=== PATIENT | male | born 1950 | race Hispanic/Latino ===

== ENCOUNTER 2019-07-17 10:47 | Emergency (ER) | payer OTHER ==
[2019-07-17] MEDS ORDERED: ALBUMIN (HUMAN) 25% 200 ML IV ONE (10:58)
[2019-07-17 11:13] LABS: CREATININE 1.9 mg/dL (0.5-1.5); POTASSIUM 4.1 mmol/L (3.5-5.1)
[2019-07-17 11:17] LABS: BASOPHILS % (AUTO) 0.7 % (0.0-5.0); EOSINOPHILS % (AUTO) 2.5 % (0.0-8.0); HEMATOCRIT 31.4 % (42-54); LYMPHOCYTES % (AUTO) 12.5 % (21.0-51.0); MEAN CORPUSCULAR HEMOGLOBIN 29.9 pg (27.0-33.0); MEAN CORPUSCULAR HGB CONC 34.4 g/dL (32.0-36.0); MONOCYTES % (AUTO) 9.2 % (3.0-13.0); NEUTROPHILS % (AUTO) 74.7 % (40.0-77.0); PLATELET COUNT (AUTO) 175 K/uL (130-400); RED BLOOD CELL COUNT(AUTO) 3.61 MIL/uL (4.50-6.20); RED CELL DISTRIBUTION WIDTH 24.9 % (11.0-15.5); WHITE BLOOD COUNT (AUTO) 6.9 K/uL (4.8-10.8)
[2019-07-17 11:18] LABS: ALBUMIN 3.1 g/dL (3.5-5.0); BILIRUBIN,TOTAL 1.5 mg/dL (0.2-1.0); TOTAL PROTEIN, SERUM 7.5 g/dL (6.0-8.3)
[2019-07-17 11:52] LABS: INR 1.11 (0.85-1.15); PARTIAL THROMBOPLASTIN TIME 28.8 SEC (26.3-35.5); PROTHROMBIN TIME 11.9 SEC (9.6-11.6)
[2019-07-17 15:49] LABS: APPEARANCE BODY FLUID SLIGHTLY CLOUDY (CLEAR); COLOR,BODY FLUID LT YELLOW (LT YELLOW); SPECIMENTYPE,BODY FLUID ASCITES; TOTAL VOLUME,BODY FLUID 9100 mL
[2019-07-17 15:50] LABS: BODY FLUID WBC 765 /cu. mm.
[2019-07-17 15:51] LABS: BODY FLUID RBC 275 /cu. mm.
[2019-07-17 16:50] LABS: BF LYMPHOCYTE 21 %; BF MESOTHELIAL 1 %; BF MONOCYTE 7 %; BF OTHER CELLS 3
== END 2019-07-17 13:02 | disposition home or self-care (01) ==
LOC: EDH 10:47
DX: R18.8 Other ascites (principal); K74.60 Unspecified cirrhosis of liver
CPT/HCPCS: 36415; 49083; 80053; 85025; 85610; 85730; 87071; 87205; 89051; 96365; 99285; A4215; P9046

== ENCOUNTER 2019-07-31 10:37 | Inpatient (IN) | payer OTHER, MEDICARE ==
[~2019-07-31] VITALS: Ht 177.8 cm; Wt 61.4 kg
[2019-07-31 11:24] LABS: ALBUMIN 3.4 g/dL (3.5-5.0); BILIRUBIN,TOTAL 1.1 mg/dL (0.2-1.0); CREATININE 2.2 mg/dL (0.5-1.5); POTASSIUM 5.1 mmol/L (3.5-5.1); TOTAL PROTEIN, SERUM 7.5 g/dL (6.0-8.3)
[2019-07-31 11:27] LABS: BASOPHILS % (AUTO) 0.7 % (0.0-5.0); HEMATOCRIT 31.2 % (42-54); LYMPHOCYTES % (AUTO) 10.1 % (21.0-51.0); MEAN CORPUSCULAR HEMOGLOBIN 30.2 pg (27.0-33.0); MEAN CORPUSCULAR HGB CONC 34.6 g/dL (32.0-36.0); MEAN CORPUSCULAR VOLUME 87.2 fL (79-99); NEUTROPHILS % (AUTO) 76.5 % (40.0-77.0); NUCLEATED RED BLOOD CELLS 0.3 % (0.0-0.19); PLATELET COUNT (AUTO) 156 K/uL (130-400); RED BLOOD CELL COUNT(AUTO) 3.58 MIL/uL (4.50-6.20); RED CELL DISTRIBUTION WIDTH 23.9 % (11.0-15.5); WHITE BLOOD COUNT (AUTO) 5.9 K/uL (4.8-10.8)
[2019-07-31 11:29] LABS: INR 1.17 (0.85-1.15); PARTIAL THROMBOPLASTIN TIME 30.9 SEC (26.3-35.5); PROTHROMBIN TIME 12.6 SEC (9.6-11.6)
[2019-07-31] MEDS ORDERED: ALBUMIN (HUMAN) 25% 200 ML IV ONE (13:02)
--- NOTE | 2019-07-31 14:00 | NUR ---
U/S GD PARACENTESIS PROCEDURE PERFORMED BY DR Avis MONSALVE. PUNCTURE SITE RLQ AND PATIENT TOLERATED PROCEDURE WELL. TOTAL REMOVED 9.7 LITERS OF CLOUDY YELLOW FLUID. END OF PROCEDURE AT 1345. CATHETER REMOVED AND DRESSING APPLIED. NO BLEEDING NOTED. REPORT GIVEN TO CED VELASCO AND PATIENT TRANSPORTED TO ED 10 VIA STRETCHER AT 1400. AAO X3 WITH NO C/O PAIN. SPECIMEN SENT TO LAB.
[2019-07-31 15:25] VITALS: BP 99/62
[2019-07-31] MEDS ORDERED: ONDANSETRON HCL 4 MG/2 ML VIAL IVP PRN (15:30)
[2019-07-31 15:38] LABS: APPEARANCE BODY FLUID CLEAR (CLEAR); COLOR,BODY FLUID LT YELLOW (LT YELLOW); SPECIMENTYPE,BODY FLUID ASCITES; TOTAL VOLUME,BODY FLUID 9700 mL
[2019-07-31 15:39] LABS: BODY FLUID WBC 167 /cu. mm.
[2019-07-31 15:42] LABS: BODY FLUID RBC 292 /cu. mm.
[2019-07-31 15:47] LABS: BF LYMPHOCYTE 39 %; BF MONOCYTE 7 %
[2019-07-31 20:00] VITALS: BP 98/56
[2019-07-31] MEDS ORDERED: PANT40TA PO (20:33)
[2019-07-31] MEDS ORDERED: SPIR100T5 PO (20:33)
[2019-07-31] MEDS ORDERED: LACT10SO32 PO (20:33)
[2019-07-31] MEDS ORDERED: URSO500T10 PO (20:33)
[2019-07-31] MEDS ORDERED: ONDA8TAB12 PO (20:33)
[2019-07-31] MEDS ORDERED: FURO40TA5 PO (20:33)
[2019-07-31] MEDS ORDERED: RIFA550T PO (20:33)
[2019-07-31] MEDS ORDERED: LINA290C PO (20:33)
[2019-08-01 00:04] VITALS: BP 95/58
[2019-08-01 01:35] LABS: CREATININE,URINE RANDOM 78 mg/dL (30-135); SODIUM,URINE RANDOM < 15 mmol/l (40-220)
[2019-08-01 04:08] VITALS: BP 90/50
[2019-08-01 05:55] LABS: BASOPHILS % (AUTO) 0.8 % (0.0-5.0); EOSINOPHILS % (AUTO) 5.9 % (0.0-8.0); HEMATOCRIT 30.6 % (42-54); LYMPHOCYTES % (AUTO) 15.5 % (21.0-51.0); MEAN CORPUSCULAR HEMOGLOBIN 30.3 pg (27.0-33.0); MEAN CORPUSCULAR HGB CONC 34.3 g/dL (32.0-36.0); MEAN CORPUSCULAR VOLUME 88.2 fL (79-99); MONOCYTES % (AUTO) 10.7 % (3.0-13.0); NEUTROPHILS % (AUTO) 66.3 % (40.0-77.0); PLATELET COUNT (AUTO) 148 K/uL (130-400); RED BLOOD CELL COUNT(AUTO) 3.47 MIL/uL (4.50-6.20); RED CELL DISTRIBUTION WIDTH 23.9 % (11.0-15.5); WHITE BLOOD COUNT (AUTO) 5.2 K/uL (4.8-10.8)
[2019-08-01 06:33] LABS: ALBUMIN 3.8 g/dL (3.5-5.0); BILIRUBIN,DIRECT 0.5 mg/dL (0.0-0.3); BILIRUBIN,TOTAL 1.2 mg/dL (0.2-1.0); CREATININE 1.7 mg/dL (0.5-1.5); POTASSIUM 4.7 mmol/L (3.5-5.1); TOTAL PROTEIN, SERUM 7.3 g/dL (6.0-8.3)
[2019-08-01 07:30] VITALS: BP 96/57
--- NOTE | 2019-08-01 08:00 | NUR ---
AM SHIFT ASSESSMENT.
[2019-08-01] MEDS: FAMOTIDINE/PF 20 MG/2 ML VIAL IV SCH (08:37)
[2019-08-01] MEDS ORDERED: ALBUMIN (HUMAN) 25% 100 ML IV SCH (09:15)
[2019-08-01 11:00] VITALS: BP 96/62
[2019-08-01] MEDS: URSODIOL 300 MG CAPSULE PO SCH (12:11)
[2019-08-01] MEDS: RIFAXIMIN 550 MG TABLET PO SCH (12:11)
--- NOTE | 2019-08-01 12:46 | NUR ---
PLACED ON 1500 ML FLUID RESTRICTIONS
[2019-08-01] MEDS: MIDODRINE HCL 5 MG TABLET PO SCH ×2 (13:25→19:55)
[2019-08-01] MEDS: LACTULOSE 20 GM/30 ML UDCUP PO SCH ×2 (13:26→19:55)
[2019-08-01] MEDS: ALBUMIN (HUMAN) 25% 100 ML IV NR ×2 (14:00→21:04)
[2019-08-01] MEDS: PHARMACY COMMUNICATION MISC SCH ×3 (14:15→22:15)
[2019-08-01 15:03] LABS: APPEARANCE,URINE Clear (CLEAR); BILIRUBIN,URINE Negative (NEGATIVE); COLOR,URINE Yellow (YELLOW); GLUCOSE, URINE (UA) Negative (NEGATIVE); KETONES,URINE Negative (NEGATIVE); LEUKOCYTE ESTERASE ,URINE Negative (NEGATIVE); NITRATE,URINE Negative (NEGATIVE); OCCULT BLOOD,URINE Negative (NEGATIVE); PH,URINE 5.5 (5.0-8.0); PROTEIN,URINE Negative (NEGATIVE)
[2019-08-01 15:32] LABS: AMPHET/METH SCREEN,URINE NEGATIVE (NEGATIVE); CANNABINOID SCREEN,URINE NEGATIVE (NEGATIVE); COCAINE SCREEN,URINE NEGATIVE (NEGATIVE); OPIATE SCREEN,URINE NEGATIVE (NEGATIVE); PHENCYCLIDINE SCREEN,URINE NEGATIVE (NEGATIVE)
[2019-08-01 15:54] LABS: BARBITURATE SCREEN, URINE NEGATIVE (NEGATIVE); BENZODIAZEPINES SCREEN,URINE NEGATIVE (NEGATIVE)
[2019-08-01 16:00] VITALS: BP 98/58
[2019-08-01 20:16] VITALS: BP 90/51
[2019-08-02] VITALS: BP 102/59
[2019-08-02] MEDS: PHARMACY COMMUNICATION MISC SCH ×3 (02:15→16:52)
[2019-08-02 04:00] VITALS: BP 97/58
[2019-08-02] MEDS: ALBUMIN (HUMAN) 25% 100 ML IV NR ×3 (04:52→14:00)
[2019-08-02 05:11] LABS: HEMATOCRIT 28.7 % (42-54); MEAN CORPUSCULAR HEMOGLOBIN 30.2 pg (27.0-33.0); MEAN CORPUSCULAR HGB CONC 34.1 g/dL (32.0-36.0); MEAN CORPUSCULAR VOLUME 88.6 fL (79-99); PLATELET COUNT (AUTO) 142 K/uL (130-400); RED BLOOD CELL COUNT(AUTO) 3.24 MIL/uL (4.50-6.20); RED CELL DISTRIBUTION WIDTH 24.1 % (11.0-15.5); WHITE BLOOD COUNT (AUTO) 6.1 K/uL (4.8-10.8)
[2019-08-02 05:39] LABS: CREATININE 1.6 mg/dL (0.5-1.5); PHOSPHORUS 3.2 mg/dL (2.5-4.9); POTASSIUM 4.3 mmol/L (3.5-5.1)
[2019-08-02 06:09] LABS: BAND NEUTROPHILS % (MANUAL) 5 % (0-2); BASOPHILS % (MANUAL) 2 % (0-2); EOSINOPHILS % (MANUAL) 5 % (1-6); LYMPHOCYTES % (MANUAL) 15 % (22-44); MONOCYTES % (MANUAL) 7 % (2-9); SEGMENTED NEUTROPHILS % 66 % (40-70)
[2019-08-02 06:14] LABS: MAN.DIFF COMMENT-IMPRESSION MANUAL DIFFERENTIAL
[2019-08-02] MEDS: PANTOPRAZOLE SODIUM 40 MG TABLET.DR PO SCH (06:32)
[2019-08-02 07:30] VITALS: BP 97/57
[2019-08-02] MEDS: MIDODRINE HCL 5 MG TABLET PO SCH ×3 (08:43→22:10)
[2019-08-02] MEDS: RIFAXIMIN 550 MG TABLET PO SCH (08:43)
[2019-08-02] MEDS: LACTULOSE 20 GM/30 ML UDCUP PO SCH ×3 (08:43→22:10)
[2019-08-02] MEDS: URSODIOL 300 MG CAPSULE PO SCH (08:44)
[2019-08-02] MEDS: FAMOTIDINE/PF 20 MG/2 ML VIAL IV SCH (08:44)
[2019-08-02 11:00] VITALS: BP 90/55
--- NOTE | 2019-08-02 15:17 | NUR ---
INITIAL: Met with pt this afternoon to discuss dcp. Pt mentions that he lives w his son (carmine rea). Prior to admission he was independent w ambulation and ADLs. HE owns a cane and standard walker if needed. Per pt his son provides transportation. Pt mentions that he feels safe and comfortable to return home at in. CM to continue to follow and wait for Md recommendations. Addendum: 08/02/19 at 1519 by MARIIA CHATMAN Amended: Links added.
[2019-08-02 16:00] VITALS: BP 103/51
[2019-08-02 20:00] VITALS: BP 147/61
[2019-08-02] MEDS: ALBUMIN (HUMAN) 25% 100 ML IV SCH (22:12)
[2019-08-03] VITALS: BP 96/54
[2019-08-03 04:00] VITALS: BP 92/50
[2019-08-03] MEDS: ALBUMIN (HUMAN) 25% 100 ML IV SCH ×2 (06:14→14:14)
[2019-08-03 06:27] LABS: HEMATOCRIT 29.5 % (42-54); MEAN CORPUSCULAR HGB CONC 33.9 g/dL (32.0-36.0); MEAN CORPUSCULAR VOLUME 88.6 fL (79-99); PLATELET COUNT (AUTO) 144 K/uL (130-400); RED BLOOD CELL COUNT(AUTO) 3.33 MIL/uL (4.50-6.20); RED CELL DISTRIBUTION WIDTH 24.1 % (11.0-15.5); WHITE BLOOD COUNT (AUTO) 5.8 K/uL (4.8-10.8)
[2019-08-03 06:38] LABS: CREATININE 1.7 mg/dL (0.5-1.5); POTASSIUM 4.3 mmol/L (3.5-5.1)
[2019-08-03 07:59] VITALS: BP 98/52
[2019-08-03 08:07] LABS: BAND NEUTROPHILS % (MANUAL) 2 % (0-2); BASOPHILS % (MANUAL) 1 % (0-2); EOSINOPHILS % (MANUAL) 5 % (1-6); LYMPHOCYTES % (MANUAL) 22 % (22-44); MONOCYTES % (MANUAL) 6 % (2-9); REACTIVE LYMPHOCYTES 2 % (0-0); SEGMENTED NEUTROPHILS % 62 % (40-70)
[2019-08-03 08:08] LABS: MAN.DIFF COMMENT-IMPRESSION MANUAL DIFFERENTIAL; PLATELET MORPHOLOGY COMMENT ADEQUATE
[2019-08-03] MEDS: URSODIOL 300 MG CAPSULE PO SCH (08:34)
[2019-08-03] MEDS: MIDODRINE HCL 5 MG TABLET PO SCH ×2 (08:34→14:15)
[2019-08-03] MEDS: PANTOPRAZOLE SODIUM 40 MG TABLET.DR PO SCH (08:35)
[2019-08-03] MEDS: RIFAXIMIN 550 MG TABLET PO SCH (08:35)
[2019-08-03] MEDS: LACTULOSE 20 GM/30 ML UDCUP PO SCH ×2 (08:35→14:14)
[2019-08-03] MEDS: FAMOTIDINE/PF 20 MG/2 ML VIAL IV SCH (08:35)
[2019-08-03 11:31] VITALS: BP 102/65
[2019-08-03 15:56] VITALS: BP 105/55
[2019-08-03] MEDS ORDERED: LEVO500T2 PO (16:51)
--- NOTE | 2019-08-03 18:24 | NUR ---
PATIENT GIVEN DISCHARGE INSTRUCTIONS AND VERBALIZED UNDERSTANDING , IV REMOVED WITH CATHETER INTACT AND PRESSURE HELD TO SITE THEN SITE DRESSED, REVIEWED FOLLOW-UP APPOINTMENTS PATINE NEEDS TO MAKE, MEDICATIONS TO CONTINUE AND NEW MEDICATION TO START TOMORROW , PATIENT DENIES AT THIS TIME, SON SERJIO NOTIFIED OF FATHER DISCHARGE AND IS ON HIS WAY TO PICK HIM UP. COPY OF PATIENT LABS GIVEN PER HIS REQUEST .
== END 2019-08-03 19:15 | disposition home or self-care (01) | DRG 441 ==
LOC: EDH 10:37 → EDHIP 14:23 → OBSVTOIN 14:23 → 3DH 15:44
PROVIDERS: ADMIT Internal Medicine; ATTEND Internal Medicine
PROC: 0W9G3ZZ Drainage of Peritoneal Cavity, Percutaneous Approach (ICD-10-PCS; principal; 2019-07-31)
DX: K72.90 Hepatic failure, unspecified without coma (principal); E43 Unspecified severe protein-calorie malnutrition; N17.9 Acute kidney failure, unspecified; E87.1 Hypo-osmolality and hyponatremia; C22.9 Malignant neoplasm of liver, not specified as primary or secondary; J98.11 Atelectasis; I42.9 Cardiomyopathy, unspecified; R18.8 Other ascites; Z68.1 Body mass index [BMI] 19.9 or less, adult; K74.60 Unspecified cirrhosis of liver; N18.9 Chronic kidney disease, unspecified; E86.1 Hypovolemia; E87.8 Other disorders of electrolyte and fluid balance, not elsewhere classified; R62.7 Adult failure to thrive; T50.2X5A Adverse effect of carbonic-anhydrase inhibitors, benzothiadiazides and other diuretics, initial encounter; I95.9 Hypotension, unspecified; Y92.89 Other specified places as the place of occurrence of the external cause; Z92.21 Personal history of antineoplastic chemotherapy
CPT/HCPCS: 36415; 49083; 71045; 76705; 76770; 80048; 80053; 80076; 80305; 81003; 82140; 82270; 82533; 82550; 82570; 84100; 84145; 84300; 84484; 85025; 85610; 85730; 87071; 87205; 89051; 93005; 96365; G0378; J3490; P9046